=== PATIENT | male | born 1960 | race Caucasian/White ===

== ENCOUNTER 2025-07-12 06:28 | Day surgery (SDC) | payer MEDICARE, SELFPAY ==
[2025-07-12 09:54] LABS: Glucose - Point of Care 108 mg/dl (70-99)
== END 2025-07-12 11:04 | disposition home or self-care (01) ==
LOC: GI 06:28
PROVIDERS: ATTENDING PHYSICIAN Internal Medicine
DX: Z12.11 Encounter for screening for malignant neoplasm of colon (principal); K60.2 Anal fissure, unspecified; K57.30 Diverticulosis of large intestine without perforation or abscess without bleeding; D12.0 Benign neoplasm of cecum; D12.3 Benign neoplasm of transverse colon; K63.5 Polyp of colon; Z86.0101 Personal history of adenomatous and serrated colon polyps
CPT/HCPCS: 45385; 45380; 82962; 88305